=== PATIENT | male | born 1965 | race Caucasian/White ===

== ENCOUNTER → 2016-03-18 | Outpatient (REF) | payer BC ==
[2016-03-18 17:53] LABS: PERCENT SATURATION 22.6 % (19.7-37.4); TOTAL IRON BINDING CAPACITY 319 UG/DL (250-450)
== END ==
LOC: M LAB REF 16:26
PROVIDERS: ATTEND Nurse Practitioner Family
DX: R94.5 Abnormal results of liver function studies (principal)

== ENCOUNTER → 2016-04-07 | Outpatient (REF) | payer BC ==
[2016-04-07 15:50] LABS: EOSINOPHILS 1 % (0-5)
== END ==
LOC: M LAB REF 11:44
PROVIDERS: ATTEND Internal Medicine
DX: R94.5 Abnormal results of liver function studies (principal)

== ENCOUNTER → 2016-04-28 | Outpatient (REF) | payer BC | LOC: M LAB REF 12:14 | PROVIDERS: ATTEND Internal Medicine | DX: R74.8 Abnormal levels of other serum enzymes (principal) ==

== ENCOUNTER 2016-12-17 11:30 | Outpatient (CLI) | payer BC ==
[~2016-12-17] VITALS: Ht 167.6 cm; Wt 79.4 kg
[~2016-12-17 11:30] MED LIST: AFLU1INJ IM; OMEP40CA2 PO; VITAD1000T PO
[2016-12-17] MEDS ORDERED: LIDOCAINE 2% INJ 100 MG/5 ML SDV (FOR ANES.) As Ordered ONE (12:42)
[2016-12-17] MEDS ORDERED: PROPOFOL 200 MG/20 ML VIAL As Ordered ONE (12:42)
--- NOTE | 2016-12-17 12:46 | ROOR ---
Patient Name: Jaspal Mix Procedure Date: 12/17/2016 12:23 PM Date of : 1965 Age: 51 Room: [facility] Gender: Male Note Status: Finalized Procedure: Total Colonoscopy to Cecum Indications: Screening for colorectal malignant neoplasm Providers: Maksim Patterson MD Referring MD: FRANCINE FLOYD JR, MD Requesting Provider: Medicines: Monitored Anesthesia Care Complications: No immediate complications. Procedure: Pre-Anesthesia Assessment: - The heart rate, respiratory rate, oxygen saturations, blood pressure, adequacy of pulmonary ventilation, and response to care were monitored throughout the procedure. The Colonoscope was introduced through the anus and advanced to the cecum, identified by appendiceal orifice and ileocecal valve. The colonoscopy was performed without difficulty. The patient tolerated the procedure well. The quality of the bowel preparation was excellent. Findings: The perianal and digital rectal examinations were normal. Non-bleeding internal hemorrhoids were found during retroflexion. The hemorrhoids were small and Grade I (internal hemorrhoids that do not prolapse). No other significant abnormalities were identified in a careful examination of the remainder of the colon. The exam was otherwise without abnormality on direct and retroflexion views. Impression: - Non-bleeding internal hemorrhoids. - The examination was otherwise normal on direct and retroflexion views. - No specimens collected. - The exam was otherwise normal to the cecum. Recommendation: - Patient has a contact number available for emergencies. The signs and symptoms of potential delayed complications were discussed with the patient. Return to normal activities tomorrow. Written discharge instructions were provided to the patient. - High fiber diet. - Discharge patient to home. - Continue present medications. - Repeat colonoscopy in 10 years for screening purposes. - Return to referring physician. - The findings and recommendations were discussed with the patient's family. Maksim Patterson MD Maksim Patterson MD 12/17/2016 12:46:11 PM This report has been signed electronically. Number of Addenda: 0 Note Initiated On: 12/17/2016 12:23 PM Estimated Blood Loss: Estimated blood loss: none.
[2016-12-17 13:20] VITALS: BP 113/88
== END 2016-12-17 13:26 | disposition home or self-care (01) ==
LOC: M OPP 11:30
PROVIDERS: ATTEND Internal Medicine Gastroenterology
DX: Z12.11 Encounter for screening for malignant neoplasm of colon (principal); K64.0 First degree hemorrhoids; R12 Heartburn; K21.9 Gastro-esophageal reflux disease without esophagitis; M19.90 Unspecified osteoarthritis, unspecified site; Z85.46 Personal history of malignant neoplasm of prostate; Z92.21 Personal history of antineoplastic chemotherapy; Z92.3 Personal history of irradiation; Z79.899 Other long term (current) drug therapy; Z80.0 Family history of malignant neoplasm of digestive organs; Z80.42 Family history of malignant neoplasm of prostate; Z80.41 Family history of malignant neoplasm of ovary

== ENCOUNTER 2018-09-15 20:20 | Emergency (ER) | payer BC ==
[~2018-09-15] VITALS: Ht 167.6 cm; Wt 77.3 kg
[2018-09-15 21:16] LABS: BASO % 0.4 % (0.0-1.0); EOS # 0.3 10^3/uL (0.0-0.50); EOS % 2.7 % (0.0-3.0); HEMATOCRIT 45.5 % (42.0-52.0); HEMOGLOBIN 15.3 g/dl (13.5-17.5); LYMPH # 2.6 10^3/uL (1.5-4.5); LYMPH % 25.4 % (24.0-44.0); MEAN CORPUSCULAR HEMOGLOBIN 29.5 pg (27.0-33.0); MEAN CORPUSCULAR HGB CONC 33.6 g/dl (32.0-36.5); MEAN CORPUSCULAR VOLUME 87.7 fl (80.0-96.0); MONO % 10.1 % (0.0-5.0); NEUTROPHILS # 6.1 10^3/uL (1.8-7.7); PLATELET COUNT, AUTOMATED 350 10^3/uL (150-450); RED BLOOD COUNT 5.19 10^6/uL (4.30-6.10)
[2018-09-15 21:26] LABS: INR 0.98; PROTHROMBIN TIME 12.7 SECONDS (11.8-14.0)
[2018-09-15 21:30] LABS: ALBUMIN 4.2 GM/DL (3.2-5.2); ALT/SGPT 29 U/L (12-78); BILIRUBIN,TOTAL 0.6 MG/DL (0.2-1.0); BLOOD UREA NITROGEN 16 MG/DL (7-18); CALCIUM LEVEL 8.7 MG/DL (8.5-10.1); CARBON DIOXIDE LEVEL 25 MEQ/L (21-32); CHLORIDE LEVEL 106 MEQ/L (98-107); CK-MB VALUE MASS 2.2 NG/ML (<3.6); CPK CREATINE PHOSPHOKINASE 300 U/L (39-308); CREATININE FOR GFR 1.45 MG/DL (0.70-1.30); GLOMERULAR FILTRATION RATE 54.4 (>56); GLUCOSE, FASTING 87 MG/DL (70-100); LIPASE 121 U/L (73-393); MB/CK RELATIVE INDEX 0.73 (< OR =4); POTASSIUM SERUM 4.7 MEQ/L (3.5-5.1); SODIUM LEVEL 140 MEQ/L (136-145); TOTAL PROTEIN 7.4 GM/DL (6.4-8.2); TROPONIN I < 0.02 NG/ML (< 0.10)
[2018-09-15 22:05] LABS: D-DIMER QUANT 302.74 ng/ml (<500)
[2018-09-15 23:17] LABS: CK-MB VALUE MASS 2.2 NG/ML (<3.6); CPK CREATINE PHOSPHOKINASE 228 U/L (39-308); MB/CK RELATIVE INDEX 0.96 (< OR =4); TROPONIN I < 0.02 NG/ML (< 0.10)
[2018-09-15] MEDS ORDERED: ISOVUE-370 76% 100ML VIAL (Q9967) As Ordered ONE (23:46)
--- NOTE | 2018-09-16 00:44 | REPVR ---
EXAM: CT Angiography Chest With Contrast EXAM DATE/TIME: 09/15/2018 11:30 PM CLINICAL HISTORY: 53 years old, male; Chest pain; Type not specified; Additional info: R/O pe TECHNIQUE: Imaging protocol: Axial computed tomographic angiography images of the chest with intravenous contrast using CT angiography protocol. Coronal and sagittal reformatted images were created and reviewed. 3D rendering: MIP reconstructed images were created and reviewed. Radiation optimization: All CT scans at this facility use at least one of these dose optimization techniques: automated exposure control; mA and/or kV adjustment per patient size (includes targeted exams where dose is matched to clinical indication); or iterative reconstruction. Contrast material: ISO; Contrast volume: 75 ml; Contrast route: AC; COMPARISON: CT Chest with contrast 04/26/2015 10:53 AM FINDINGS: Pulmonary arteries: Normal. No pulmonary emboli. Aorta: Unremarkable. No aortic aneurysm. No aortic dissection. Lungs: Mild bilateral dependent atelectasis. Pleural space: Unremarkable. No pneumothorax. No pleural effusion. Heart: Unremarkable. No cardiomegaly. No pericardial effusion. Lymph nodes: Unremarkable. No enlarged lymph nodes. 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 Soft tissues: Unremarkable. IMPRESSION: No acute pulmonary embolic disease. Electronically signed by: Jerel Bae On 09/16/2018 00:43:59 AM
[2018-09-16 01:00] VITALS: BP 141/89
--- NOTE | 2018-09-16 07:47 | ECGEPIP ---
[facility] - ED Test Date: 2018-09-15 Pat Name: MANAV CRISTINA Department: Room: - Gender: Male [employer] Resurfacer: kk : 1965 Requested By: Al Quevedo Order Number: [id number] Reading MD: Nancy Soto Measurements Intervals [place] Rate: 70 P: 16 [place]: 196 QRS: QRSD: 96 T: 2 QT: 372 QTc: 403 Interpretive Statements SINUS RHYTHM LOW QRS VOLTAGE IN PRECORDIAL LEADS DELAYED R PROGRESSION No prior Electronically Signed on 09-16-2018 7:46:34 EDT by Nancy Soto
--- NOTE | 2018-09-16 07:49 | ECGEPIP ---
[facility] - ED Test Date: 2018-09-15 Pat Name: MANAV CRISTINA Department: Room: - Gender: Male Waste Collector: MARIA ESTHER : 1965 Requested By: Al Quevedo Order Number: [id number] Reading MD: Nancy Soto Measurements Intervals [place] Rate: 66 P: 12 [place]: 201 QRS: QRSD: 99 T: QT: 385 QTc: 403 Interpretive Statements SINUS RHYTHM delayed R progression SIMILAR 20:36 Electronically Signed on 09-16-2018 7:48:45 EDT by Nancy Soto
== END 2018-09-16 01:11 | disposition home or self-care (01) ==
LOC: M ED 20:20
DX: R07.89 Other chest pain (principal); G56.02 Carpal tunnel syndrome, left upper limb; K21.9 Gastro-esophageal reflux disease without esophagitis; Z85.46 Personal history of malignant neoplasm of prostate; Z79.899 Other long term (current) drug therapy
CPT/HCPCS: 36415; 71275; 80053; 82550; 82553; 83690; 84484; 85025; 85379; 85610; 93005; 93041; 94760; 99285; Q9967

== ENCOUNTER → 2025-01-30 | Outpatient (REF) | payer OTHER ==
[~2025-01-30] MED LIST changes: +CHOL100029 PO; -OMEP40CA2 PO; +OMEP40CA4 PO; -VITAD1000T PO
== END ==
LOC: M LAB REF 11:55
DX: M25.50 Pain in unspecified joint (principal); Z11.9 Encounter for screening for infectious and parasitic diseases, unspecified